=== PATIENT | male | born 1990 | race Caucasian/White ===

== ENCOUNTER → 2018-01-10 | Outpatient (CLI) | payer BC, OTHER ==
[~2018-01-10] MED LIST: GADOBUTROL 7.5 MMOL/7.5 ML (GADAVIST) VIAL IV ONE
--- NOTE | 2018-01-10 16:45 | Diagnostic Imaging Report ---
PROCEDURE: MRI lumbar spine with and without contrast. TECHNIQUE: A multiplanar/multisequence MRI of the lumbar spine was performed with and without contrast. INDICATION: Chronic low back pain. Patient had prior lumbar spine surgery in 2016. COMPARISON: No prior studies are available for comparison. FINDINGS: The curvature and alignment of the lumbar spine are normal. The vertebral body heights are maintained. No compression fracture or geographic marrow lesion is seen. There is some desiccation to the disc at the L5-S1 level, compatible with degenerative change. The remaining lumbar discs demonstrate normal height and hydration. The conus is unremarkable at the L1 level. T12-L1: The central canal and neuroforamina are widely patent. L1-2: Unremarkable. L2-3: Mild ligamentous thickening is present. No disc protrusion, central canal, or neuroforaminal stenosis is identified. L3-4: There is mild ligamentous thickening but the central canal and neuroforamina are widely patent. L4-5: There is some ligamentous thickening and facet change noted. A broad-based disc/osteophyte complex does flatten the ventral thecal sac. The central canal is patent. There is narrowing of the lateral recesses bilaterally. There is also mild to moderate bilateral neuroforaminal narrowing. L5-S1: A broad-based disc/osteophyte complex indents the ventral thecal sac. There is some slight narrowing of the canal. The bilateral lateral recesses are narrowed. There is also moderate bilateral neuroforaminal narrowing. Linear signal within the posterior annulus is identified, consistent with an annular tear. No abnormal enhancement following contrast administration is seen. The paraspinous tissues are unremarkable. IMPRESSION: Lower lumbar spondylosis with lateral recess and neuroforaminal stenosis at the L4-5 and L5-S1 levels, as described above. There is very mild narrowing of the central canal as well. No other significant abnormality is seen. Dictated by: Dictated on workstation # [id number]
== END ==
LOC: RAD 14:01
PROVIDERS: ATTEND Nurse Practitioner Family
DX: M48.07 Spinal stenosis, lumbosacral region (principal); M47.816 Spondylosis without myelopathy or radiculopathy, lumbar region; M99.73 Connective tissue and disc stenosis of intervertebral foramina of lumbar region; M46.06 Spinal enthesopathy, lumbar region; M51.36 Other intervertebral disc degeneration, lumbar region; Z98.890 Other specified postprocedural states
CPT/HCPCS: 72158